=== PATIENT | male | born 1965 | race Caucasian/White ===

== ENCOUNTER 2022-04-30 13:04 | Inpatient (IN) | payer OTHER ==
[~2022-04-30] VITALS: Ht 177.8 cm; Wt 57.6 kg
--- NOTE | 2022-04-30 13:13 | NUR ---
BREANNA Spencer FROM [facility] FOR APRIL KERR, PT IS ON HFNR SATTING AT 100%, PT SATTING AT 97% ON ROOM AIR. PT HAS HX OF COPD STATES THAT HE HAS BEEN FEELING SOB FOR A MONTH AND HIS INHALER IS NOT WORKING. WHEEZING HEARD UPON AUSCULTATION. RT AT BEDSIDE, DR JOSEPH AT BEDSIDE. AWAITING MD ORDERS.
--- NOTE | 2022-04-30 13:14 | NUR ---
IV ESTABLISHED L AC 20G. LABS DRAWN AND SENT.
[2022-04-30] MEDS ORDERED: ALBUTEROL FS 2.5 MG/3 ML VIAL.NEB ONE ×2 (13:15→14:15)
--- NOTE | 2022-04-30 13:15 | NUR ---
RT AT BEDSIDE FOR BREATHING TREATMENT.
[2022-04-30] MEDS ORDERED: Magnesium 1GM/D5W 100ML PREMIX 100 ML IV ONE (13:16)
[2022-04-30] MEDS ORDERED: methylPREDNISolone SOD SUCC 125 MG/2ML VIAL ONE (13:16)
--- NOTE | 2022-04-30 13:18 | NUR ---
TECH AT BEDSIDE FOR EKG
--- NOTE | 2022-04-30 13:27 | NUR ---
COVID TEST COLLECTED AND SENT
--- NOTE | 2022-04-30 13:29 | NUR ---
X RAY AT BEDSIDE
[2022-04-30] MEDS ORDERED: ALBUTEROL FS 2.5 MG/3 ML VIAL.NEB CONTNEB ONE ×2 (13:30→15:00)
[2022-04-30] MEDS ORDERED: methylPREDNISolone SOD SUCC 125 MG/2ML VIAL IV ONE (13:30)
[2022-04-30] MEDS ORDERED: Magnesium 1GM/D5W 100ML PREMIX 200 ML IV ONE (13:30)
[2022-04-30 13:33] LABS: BASOPHILS # (AUTO) 0.1 K/uL (0.0-0.2); BASOPHILS % (AUTO) 1.4 % (0.0-2.0); EOSINOPHILS % (AUTO) 7.1 % (0.0-6.0); HEMATOCRIT 40 % (39-51); HEMOGLOBIN 13.5 g/dL (13.5-17.5); LYMPHOCYTES # (AUTO) 0.9 K/uL (0.8-4.8); LYMPHOCYTES % (AUTO) 14.7 % (20.0-44.0); MEAN CORPUSCULAR HGB CONC 34 g/dl (31.0-36.0); MEAN CORPUSCULAR VOLUME 91 fL (80-96); MONOCYTES # (AUTO) 0.7 K/uL (0.1-1.30); MONOCYTES % (AUTO) 10.9 % (2.0-12.0); NEUTROPHILS % (AUTO) 65.9 % (43.0-81.0); PLATELET COUNT (AUTO) 317 K/uL (150-450); RED BLOOD CELL COUNT(AUTO) 4.39 MIL/uL (4.5-6.0)
[2022-04-30 13:39] LABS: CALCIUM, SERUM 9.2 mg/dL (8.5-10.1); CREATININE 0.6 mg/dL (0.6-1.3); POTASSIUM 4.6 mmol/L (3.5-5.1)
[2022-04-30 13:45] LABS: ALBUMIN 3.4 g/dL (3.4-5.0); BILIRUBIN,DIRECT 0.1 mg/dL (0.0-0.2); BILIRUBIN,TOTAL 0.5 mg/dL (0.2-1.0); TOTAL PROTEIN, SERUM 7.8 g/dL (6.4-8.2)
[2022-04-30] MEDS ORDERED: ALBU8.5H8 IH (14:05)
[2022-04-30] MEDS ORDERED: MEGE40TA5 PO (14:05)
[2022-04-30] MEDS ORDERED: HYDR-4303 PO (14:05)
[2022-04-30] MEDS ORDERED: MAG30ORA PO (14:05)
[2022-04-30] MEDS ORDERED: ACET-868 PO (14:05)
[2022-04-30] MEDS ORDERED: HYDR-3980 PO (14:05)
[2022-04-30] MEDS ORDERED: TIOT18CA3 IH (14:05)
[2022-04-30] MEDS ORDERED: AMOX-430 PO (14:05)
[2022-04-30] MEDS ORDERED: IPRATROPIUM NEB FS 0.5 MG/2.5 ML AMPUL.NEB ONE (14:15)
--- NOTE | 2022-04-30 14:15 | NUR ---
PT INSISTING ON IV LINE TO BE REMOVED, STATING "IT HURTS, REMOVE IT". EXPLAINED TO PT IMPORTANCE OF PERIPHERAL IV LINE BUT STILL WANTED IT TO BE REMOVED. IV LINE REMOVED, NO BLEEDING NOTED.
[2022-04-30] MEDS ORDERED: IPRATROPIUM NEB FS 0.5 MG/2.5 ML AMPUL.NEB NEB ONE (15:00)
[2022-04-30] MEDS ORDERED: INSULIN REGULAR, HUMAN 100 UNIT/ML 10 ML VIAL IV ONE (15:30)
[2022-04-30] MEDS ORDERED: ALBUTEROL FS 2.5 MG/3 ML VIAL.NEB NEB ONE ×2 (15:30→16:00)
--- NOTE | 2022-04-30 15:31 | NUR ---
RT GIVIN 10 MG ALB 1ST HOUR CONTINOUS PER MD 10MG ALB 1MG ATRO 2ND HR PER MD EMAR MEDICATION ERROR
--- NOTE | 2022-04-30 20:32 | NUR ---
RECEIVED PT IN ER ROOM 6. PT IS ALERT, RR EVEN AND NON LABORED ON SIMPLE MASK @5L [id number] PT IS NONCOMPLIANT, DOES NOT WANT TO HAVE BP CUFF ON ARM AND IS REFUSING IV INSERTION. EXPLAINED BENEFITS VS RISKS. PT CONTINUES TO REFUSE. MD MADE AWARE
--- NOTE | 2022-04-30 21:58 | NUR ---
report given to katarina
--- NOTE | 2022-04-30 21:59 | NUR ---
PATIENT TRANSFERRED TO [facility]
--- NOTE | 2022-04-30 22:20 | NUR ---
MS INSTALLATION AND REPAIR TECHNICIAN NOTE RECEIVED REPORT FROM ER NURSE LOYDA. PT IS BEING ADMITTED IN ROOM 309-2 FOR COPD EXACERBATION, AND RESPIRATORY DISTRESS. PT IS A/O X 3-4, ABLE TO MAKE NEEDS KNOWN. PT IS ORIENTED TO ROOM. NO C/O PAIN, OR DISCOMFORT AT THIS TIME. PT IS REFUSING BREATHING TREATMENT, AND HE IS REFUSING SKIN ASSESSMENT. IV ACCESS TO LEFT AC 20G, PATENT, AND INTACT. SAFETY MEASURES IN PLACE: CALL LIGHT WITHIN REACH, BED LOCKED, IN LOW POSITION, SR UP X2. WILL CONTINUE TO MONITOR PT.
[2022-04-30] MEDS: ALBUTEROL FS 2.5 MG/0.5 ML VIAL.NEB NEB SCH (23:00)
[2022-04-30] MEDS ORDERED: ONDANSETRON HCL/PF 4 MG/2 ML VIAL IVP PRN (23:00)
[2022-04-30] MEDS: IPRATROPIUM NEB FS 0.5 MG/2.5 ML AMPUL.NEB NEB SCH (23:00)
[2022-04-30] MEDS ORDERED: Z GUARD REMEDY 4 OZ OINT TP PRN (23:00)
[2022-04-30] MEDS ORDERED: ACETAMINOPHEN 325 MG TABLET PO PRN (23:00)
--- NOTE | 2022-04-30 23:24 | NUR ---
RT Pt refused tx and refused Spo2 check, RN informed. No SOB or respiratory distress noted at this time.
[2022-05-01] MEDS: methylPREDNISolone SOD SUCC 40 MG/ML VIAL IV SCH ×4 (05:00→21:00)
--- NOTE | 2022-05-01 07:02 | NUR ---
MS RN OPENING NOTES RECEIVED PATIENT IN BED AWAKE, ABLE TO MAKE NEEDS KNOWN. ON 2L VIA NC, NO S/S OF RESPIRATORY DISTRESS. PATIENT HAS IV ACCESS LAC #20 SL, INTACT AND PATENT. PATIENT IS CONTINENT USES URINAL. PATIENT IS REFUSING BODY CHECK AT THIS TIME WILL CONTINUE TO ATTEMPT. SAFETY MEASURES IN PLACE: BED LOCKED AND IN LOWEST POSITION, SIDE RAILS UP x2, CALL LIGHT WITHIN REACH, HOB ELEVATED. WILL CONTINUE TO MONITOR.
--- NOTE | 2022-05-01 07:05 | NUR ---
MS RN CLOSING NOTE LEFT PT AWAKE, IN BED. PT IS A/O X 3-4, ABLE TO MAKE NEEDS KNOWN. NO C/O PAIN, OR DISCOMFORT AT THIS TIME. PT IS REFUSING MED, SOLU MEDROL. IMPORTANCE OF RECEIVING MEDICATION IS EXPLAINED TO PT. BUT PT STILL DECLINES. IV ACCESS TO LEFT AC 20G, PATENT, AND INTACT. SAFETY MEASURES IN PLACE: CALL LIGHT WITHIN REACH, BED LOCKED, IN LOW POSITION, SR UP X2. WILL CONTINUE TO MONITOR PT.
--- NOTE | 2022-05-01 07:13 | NUR ---
MS RN NOTE PT ENDORSED TO AM SHIFT NURSE FOR MIHAI.
[2022-05-01] MEDS: IPRATROPIUM NEB FS 0.5 MG/2.5 ML AMPUL.NEB NEB SCH ×4 (07:27→19:30)
[2022-05-01] MEDS: ALBUTEROL FS 2.5 MG/0.5 ML VIAL.NEB NEB SCH ×4 (07:28→19:30)
[2022-05-01] MEDS: PANTOPRAZOLE 40 MG TABLET.DR PO SCH (07:30)
[2022-05-01] MEDS: HYDROCODONE/APAP 10/325MG TABLET PO PRN ×2 (07:57→17:12)
[2022-05-01 08:00] VITALS: BP 106/71
[2022-05-01] MEDS: MEGESTROL ACETATE 40 MG TABLET PO SCH ×2 (09:00→17:00)
--- NOTE | 2022-05-01 09:18 | NUR ---
RN NOTES PATIENT REFUSED MORNING MEDICATION, EXPLAINED MEDICATION, THE RISKS AND THE BENEFITS. STATED THAT HE WANTS PAIN MEDICATION, "STRONG ONES" EXPLAINED THAT PAIN MEDICATION WAS ADMINISTERED ALREADY. WILL CONTINUE TO MONITOR.
[2022-05-01] MEDS ORDERED: IOHEXOL-300 100 ML VIAL IV ONE (15:30)
[2022-05-01 16:00] VITALS: BP 125/79
--- NOTE | 2022-05-01 18:00 | NUR ---
RN NOTES PATIENT REQUESTED PAIN MEDICATION, PAIN MEDICATION ADMINISTERED. WILL CONTINUE TO MONITOR.
--- NOTE | 2022-05-01 18:41 | NUR ---
MS RN CLOSING NOTES PATIENT IN BED AWAKE, ABLE TO MAKE NEEDS KNOWN. STABLE ON 2L VIA NC, NO S/S OF RESPIRATORY DISTRESS. PATIENT HAS IV ACCESS LAC #20 SL, INTACT AND PATENT. PATIENT IS CONTENT USES URINAL. PATIENT IS REFUSING BODY CHECK AT THIS TIME WILL CONTINUE TO ATTEMPT. ALL PRESCRIBED MEDICATION REFUSED, MD AWARE. SAFETY MEASURES MAINTAINED: BED LOCKED AND IN LOWEST POSITION, SIDE RAILS UP x2, CALL LIGHT WITHIN REACH, HOB ELEVATED. WILL ENDORSE TO NEXT SHIFT MIHAI.
--- NOTE | 2022-05-01 20:22 | NUR ---
MS RN OPENING NOTES RECEIVED PATIENT SITTING IN BED WATCHING TV. A/0 X3. ABLE TO MAKE NEEDS KNOWN. STABLE ON 2L VIA NC, NO S/S OF RESPIRATORY DISTRESS. IV ACCESS LAC #20 SL, INTACT AND PATENT. PATIENT IS CONTENT USES URINAL. PATIENT IS REFUSING BODY CHECK AT THIS TIME WILL CONTINUE TO ATTEMPT. ALL PRESCRIBED MEDICATION REFUSED, MD AWARE. SAFETY MEASURES MAINTAINED: BED LOCKED AND IN LOWEST POSITION, SIDE RAILS UP x2, CALL LIGHT WITHIN REACH, HOB ELEVATED. WILL CONTINUE TO MONITOR.
--- NOTE | 2022-05-02 00:23 | NUR ---
PATIENT HAS DIFFICULTY BREATHING AND COUGHING, HOOKED TO VENTURI MASK AT 6LPM. PATEINT AGREED ADMINISTRATION OF BREATHING TREATMENT BY RT MONI. STARTED AND GIVEN SOLU MEDROL IV. TOLERATED PROCEDURE WELL. WILL MONITOR THE PATIENT.
[2022-05-02] MEDS: methylPREDNISolone SOD SUCC 40 MG/ML VIAL IV SCH ×3 (00:32→21:45)
[2022-05-02] MEDS: ALBUTEROL FS 2.5 MG/0.5 ML VIAL.NEB NEB SCH ×5 (06:11→19:30)
[2022-05-02] MEDS: IPRATROPIUM NEB FS 0.5 MG/2.5 ML AMPUL.NEB NEB SCH ×5 (06:11→19:30)
[2022-05-02 07:00] VITALS: BP 140/77
--- NOTE | 2022-05-02 07:29 | NUR ---
MS RN OPENING NOTE RECEIVED PT IN BED ASLEEP, EASILY AROUSED. PT A/O X3, ABLE TO MAKE NEEDS KNOWN. PT WAS ON O2 AT 2L/MIN VIA NASAL CANNULA, TOLERATING WELL. NO SOB NOTED. NOT IN ANY SIGN OF RESPIRATORY DISTRESS. IV ACCESS IN LAC G#20, INTACT AND PATENT. SAFETY MEASURE IN PLACE: BED IN LOWEST AND LOCKED POSITION, BED RAILS UPX2, BED ALARM ON, KEPT HOB ELEVATED AND CALL LIGHT WITHIN REACH. WILL CONTINUE TO MONITOR PT.
[2022-05-02] MEDS: PANTOPRAZOLE 40 MG TABLET.DR PO SCH (07:30)
--- NOTE | 2022-05-02 07:50 | NUR ---
MS RN CLOSING NOTES PATIENT IN BED ASLEEP ABLE TO MAKE NEEDS KNOWN. STABLE ON 2L VIA NC, NO S/S OF RESPIRATORY DISTRESS. PATIENT HAS IV ACCESS LAC #20 SL, INTACT AND PATENT. PATIENT IS CONTENT USES URINAL. SAFETY MEASURES MAINTAINED: BED LOCKED AND IN LOWEST POSITION, SIDE RAILS UP x2, CALL LIGHT WITHIN REACH, HOB ELEVATED. WILL ENDORSE TO NEXT SHIFT MIHAI.
--- NOTE | 2022-05-02 08:03 | NUR ---
RN NOTE PT REFUSED THE PROTONIX MEDICATION SCHEDULED AT 0730. EXPLAINED RISK AND BENEFITS X3, STILL REFUSED.
[2022-05-02] MEDS: MEGESTROL ACETATE 40 MG TABLET PO SCH ×2 (09:00→16:58)
--- NOTE | 2022-05-02 09:00 | NUR ---
RN NOTE PT REFUSED THE MEGACE MEDICATION SCHEDULED AT 0900. EXPLAINED RISK AND BENEFITS X3, STILL REFUSED.
[2022-05-02] MEDS: HYDROCODONE/APAP 10/325MG TABLET PO PRN ×2 (11:19→16:55)
--- NOTE | 2022-05-02 11:20 | NUR ---
RN NOTE PT C/O GENERALIZED BODY PAIN, WITH PAIN SCALE LEVEL OF 9/10 AND REQUESTED FOR PAIN MEDICATION. NORCO 10/325 2 TABS ADMINISTERED ORDERED PRN Q4HRS FOR SEVERE PAIN. WILL MONITOR AND REASSESS PT.
[2022-05-02 12:00] VITALS: BP 147/83
[2022-05-02] MEDS: ENSURE ENLIVE 237 ML LIQUID (VANILLA) PO SCH ×2 (13:47→16:58)
--- NOTE | 2022-05-02 16:59 | NUR ---
RN NOTE PT C/O GENERALIZED BODY PAIN, WITH PAIN SCALE LEVEL OF 9/10 AND REQUESTED FOR PAIN MEDICATION. NORCO 10/325 2 TABS ADMINISTERED ORDERED PRN Q4HRS FOR SEVERE PAIN. WILL MONITOR AND REASSESS PT. PT ALSO REFUSED THE MEGACE MEDICATION SCHEDULED AT 1700. EXPLAINED RISK AND BENEFITS X3, STILL REFUSED.
--- NOTE | 2022-05-02 18:51 | NUR ---
MS RN CLOSING NOTE PT IN AWAKE AND RESTING IN BED. PT A/O X3, ABLE TO MAKE NEEDS KNOWN. PT WAS ON O2 AT 2L/MIN VIA NASAL CANNULA, TOLERATING WELL. NO SOB NOTED. NOT IN ANY SIGN OF RESPIRATORY DISTRESS. IV ACCESS IN LAC G#20, INTACT AND PATENT. ALL NEEDS ATTENDED. KEPT CLEAN AND COMFORTABLE. SAFETY MEASURE IN PLACE: BED IN LOWEST AND LOCKED POSITION, BED RAILS UPX2, BED ALARM ON, KEPT HOB ELEVATED AND CALL LIGHT WITHIN REACH. WILL ENDORSE TO TRIMMER MEAT NURSE FOR MIHAI.
--- NOTE | 2022-05-02 19:40 | NUR ---
MS RN OPENING NOTE RECEIVED PATIENT IN BED; AWAKE; ALERT AND ORIENTED X 3. ON O2 INHALATION @ 2 LPM VIA NASAL CANNULA; TOLERATING WELL. BREATHING EVEN AND NONLABORED. NOT IN ANY FORM OF RESPIRATORY DISTRESS. DENIES ANY PAIN OR DISCOMFORT AT THIS TIME. WITH IV ACCESS ON LEFT ANTECUBITAL 20G: INTACT, PATENT AND SALINE LOCKED. ABLE TO MAKE NEEDS KNOWN. SAFETY PRECAUTIONS IMPLEMENTED: HEAD OF BED ELEVATED, CALL LIGHT AND TABLE WITHIN REACH, SIDE RAILS UP X 2, BED IN LOWEST LOCKED POSITION. WILL CONTINUE PLAN OF CARE.
[2022-05-02 20:00] VITALS: BP 112/69
[2022-05-03] MEDS: methylPREDNISolone SOD SUCC 40 MG/ML VIAL IV SCH ×3 (05:00→21:00)
--- NOTE | 2022-05-03 05:12 | NUR ---
RN NOTE ATTEMPTED TO GIVE METHYPREDNISOLONE SODIUM SUCCINATE 40 MG IV. HELD PER PATIENT'S REQUEST. EXPLAINED RISK AND BENEFITS OF TAKING AND NOT TAKING THE MED X 3; PATIENT STILL REFUSED.
--- NOTE | 2022-05-03 06:55 | NUR ---
MS RN CLOSING NOTE PATIENT IN BED; AWAKE; A/O X 3. ON O2 INHALATION @ 2 LPM VIA NASAL CANNULA; TOLERATING WELL. BREATHING EVEN AND NONLABORED. NOT IN ANY FORM OF RESPIRATORY DISTRESS. DENIES ANY PAIN OR DISCOMFORT AT THIS TIME. WITH IV ACCESS ON LEFT ANTECUBITAL 20G: INTACT, PATENT AND SALINE LOCKED. ALL NEEDS ATTENDED. SAFETY PRECAUTIONS MAINTAINED: HEAD OF BED ELEVATED, CALL LIGHT AND TABLE WITHIN REACH, SIDE RAILS UP X 2, BED IN LOWEST LOCKED POSITION. ENDORSED TO IRAJ WALLACE FOR MIHAI.
[2022-05-03 07:00] VITALS: BP 143/90
[2022-05-03] MEDS: PANTOPRAZOLE 40 MG TABLET.DR PO SCH (07:30)
[2022-05-03] MEDS: ENSURE ENLIVE 237 ML LIQUID (VANILLA) PO SCH ×3 (07:58→17:18)
--- NOTE | 2022-05-03 07:59 | NUR ---
RN NOTE PT REFUSED THE PROTONIX MEDICATION SCHEDULED AT 0730. EXPLAINED RISK AND BENEFITS X3, STILL REFUSED.
[2022-05-03] MEDS: IPRATROPIUM NEB FS 0.5 MG/2.5 ML AMPUL.NEB NEB SCH ×4 (08:53→19:30)
[2022-05-03] MEDS: ALBUTEROL FS 2.5 MG/0.5 ML VIAL.NEB NEB SCH ×4 (08:53→19:30)
[2022-05-03] MEDS: MEGESTROL ACETATE 40 MG TABLET PO SCH ×2 (09:00→17:00)
--- NOTE | 2022-05-03 09:26 | NUR ---
RN NOTE PT REFUSED THE MEGACE MEDICATION SCHEDULED AT 0900. EXPLAINED RISK AND BENEFITS X3, STILL REFUSED. PER RT, PT ALSO REFUSED HIS BREATHING TREATMENT, EXPLAINED RISK AND BENEFITS, STILL REFUSED. PT STATED, "THAT BREATHING TREATMENT DOESN'T WORK".
[2022-05-03 16:00] VITALS: BP 117/71
--- NOTE | 2022-05-03 17:20 | NUR ---
RN NOTE PT REFUSED THE MEGACE MEDICATION SCHEDULED AT 1700. EXPLAINED RISK AND BENEFITS X3, STILL REFUSED.
--- NOTE | 2022-05-03 18:44 | NUR ---
MS RN CLOSING NOTE PT IN AWAKE AND RESTING IN BED. PT A/O X3, ABLE TO MAKE NEEDS KNOWN. PT WAS ON O2 AT 2L/MIN VIA NASAL CANNULA, TOLERATING WELL. NO SOB NOTED. NOT IN ANY SIGN OF RESPIRATORY DISTRESS. IV ACCESS IN LAC G#20, INTACT AND PATENT. ALL NEEDS ATTENDED. KEPT CLEAN AND COMFORTABLE. SAFETY MEASURE IN PLACE: BED IN LOWEST AND LOCKED POSITION, BED RAILS UPX2, BED ALARM ON, KEPT HOB ELEVATED AND CALL LIGHT WITHIN REACH. WILL ENDORSE TO COMMERCIAL LENDING ASSISTANT NURSE FOR MIHAI.
--- NOTE | 2022-05-03 19:30 | NUR ---
RN OPENING NOTE RECEIVED PATIENT SITTING IN BED, AWAKE, ALERT AND ORIENTED. ABLE TO COMMUNICATE NEEDS WITH THE STAFFS. ON O2 INHALATION AT 2LPM. NOT IN ANY FORM OF ACUTE DISTRESS. WITH IV ACEESS ON Addendum: 05/03/22 at 2157 by YANET KHAN RN LEFT AC 20G SL. SAFETY MEASURES IN PLACE. KEPT BED IN LOCKED AND IN LOW POSITION. SIDE RAILS UP X2. ADVISED TO USE THE CALL LIGHT WHEN IN NEED OF ASSISTANCE.
[2022-05-03 20:00] VITALS: BP_SYST 118; BP_SYST 120; BP_DIAS 82; BP_DIAS 84
--- NOTE | 2022-05-03 20:05 | NUR ---
RT NOTE PT REFUSING TX AT THIS TIME. RN @ BEDSIDE. PT REFUSING AFTER EXPLAINING RISKS AND BENEFITS. SPO2 @ 95%, HR 115, RR 24.
--- NOTE | 2022-05-03 21:06 | NUR ---
RN NOTE PATIENT REFUSED SOLU-MEDROL IV DESPITE EXPLAINING RISK AND CONSEQUENCE OF NOT TAKING THE MEDICATION. PATIET HAS BEEN REPORTED BY PRIOR NURSE THAT HE HAS EPISODES OF REFUSING MEDICATIONS.
[2022-05-04] MEDS: methylPREDNISolone SOD SUCC 40 MG/ML VIAL IV SCH ×3 (05:41→20:34)
--- NOTE | 2022-05-04 06:52 | NUR ---
RN CLOSING NOTE PATIENT IN BED, ON HIGH PRESSLEY POSITION, ASLEEP BUT EASY TO AROUSE AND RESPONSIVE. ABLE TO COMMUNICATE NEEDS WITH THE STAFFS. ON O2 INHALATION AT 2LPM. NOT IN ANY FORM OF ACUTE DISTRESS. WITH IV ACCESS ON LEFT AC 20G SL. MEDICATED ORDERED. ON IV ATB, MONITORED FOR ANY ADVERSE REACTION. SAFETY MEASURES IN PLACE. KEPT BED IN LOCKED AND IN LOW POSITION TO REDUCE INJURY. SIDE RAILS UP X2. CALL LIGHT WITHIN EASY REACH. ALL NURSING NEEDS ATTENDED.
--- NOTE | 2022-05-04 07:30 | NUR ---
MS RN OPENING NOTE RECEIVED PT IN BED ASLEEP, EASILY AROUSED. PT A/O X3, ABLE TO MAKE NEEDS KNOWN. PT WAS ON O2 AT 2L/MIN VIA NASAL CANNULA, TOLERATING WELL. NO SOB NOTED. NOT IN ANY SIGN OF RESPIRATORY DISTRESS. IV ACCESS IN LAC G#20, INTACT AND PATENT. ON NPO. SCHEDULED FOR BIOPSY TODAY. SAFETY MEASURE IN PLACE: BED IN LOWEST AND LOCKED POSITION, BED RAILS UPX2, BED ALARM ON, KEPT HOB ELEVATED AND CALL LIGHT WITHIN REACH. WILL CONTINUE TO MONITOR.
[2022-05-04] MEDS: IPRATROPIUM NEB FS 0.5 MG/2.5 ML AMPUL.NEB NEB SCH ×4 (07:35→19:30)
[2022-05-04] MEDS: ALBUTEROL FS 2.5 MG/0.5 ML VIAL.NEB NEB SCH ×4 (07:35→19:30)
[2022-05-04 08:00] VITALS: BP 122/76
[2022-05-04] MEDS: ENSURE ENLIVE 237 ML LIQUID (VANILLA) PO SCH ×3 (08:00→17:00)
[2022-05-04] MEDS: PANTOPRAZOLE 40 MG TABLET.DR PO SCH (08:22)
[2022-05-04] MEDS: MEGESTROL ACETATE 40 MG TABLET PO SCH ×2 (08:22→17:59)
[2022-05-04] MEDS: HYDROCODONE/APAP 10/325MG TABLET PO PRN (18:00)
--- NOTE | 2022-05-04 19:30 | NUR ---
MS RN OPENING NOTE PATIENT SITTING IN BED, ALERT AND ORIENTED X3. ABLE TO MAKE NEED KNOWN. AFEBRILE AND NOT IN ANY FORM OF ACUTE DISTRESS. ON O2 INHALATION AT 3LPM. WITH IV ACCESS ON LEFT AC 20G SL. SAFETY MEASURES IN PLACE. KEPT BED IN LOCKED AND IN LOW POSITION TO REDUCE INJURY. SIDE RAILS UP X2. ADVISED TO USE THE CALL LIGHT WHEN IN NEED OF ASSISTANCE.
--- NOTE | 2022-05-04 19:55 | NUR ---
MS RN CLOSING NOTE PT IN BED ASLEEP, EASILY AROUSED. PT A/O X3, ABLE TO MAKE NEEDS KNOWN. PT WAS ON O2 AT 3L/MIN VIA NASAL CANNULA, TOLERATING WELL. NO SOB NOTED. NOT IN ANY SIGN OF RESPIRATORY DISTRESS. IV ACCESS IN LAC G#20, INTACT AND PATENT. RESUME DIET.CT BIOPSY REFUSED, EXPLAINED TO PATIENT RISK OF NOT HAVING THE PROCEDURE. STILL, PATIENT REFUSED. LABS WERE REFUSED ALSO. NOTIFIED DR. CHAVEZ AND DR. ARITA. SAFETY MEASURE IN PLACE: BED IN LOWEST AND LOCKED POSITION, BED RAILS UPX2, BED ALARM ON, KEPT HOB ELEVATED AND CALL LIGHT WITHIN REACH. ENDORSED TO INCOMING STAFF
--- NOTE | 2022-05-04 20:34 | NUR ---
MS RN NOTE PATIENT REFUSED TO HAVE SOLU-MEDROL ORDERED DESPITE EXPLAINING RISK AND CONSEQUENCES OF NOT TAKING IT. PATIENT HAS EPISODES OF REFUSING MEDICATIONS AND TREATMENT AND MD IS AWARE ABOUT IT.
--- NOTE | 2022-05-05 00:03 | NUR ---
RN NOTE RECEIVED AND ORDER FROM HOSPITALIST TO DO COVID ANTIGEN TEST SINCE PATIENT HAS POTENTIAL EXPOSURE TO COVID (+) PATIENT. ORDER NOTED AND CARRIED OUT AND SEND SAMPLE TO LAB. AWAITING FOR RESULT.
[2022-05-05] MEDS: methylPREDNISolone SOD SUCC 40 MG/ML VIAL IV SCH ×3 (04:34→21:00)
--- NOTE | 2022-05-05 06:51 | NUR ---
MS RN CLOSING NOTE PATIENT SITTING IN BED, AWAKE, ALERT AND ORIENTED X3. ABLE TO COMMUNICATE NEEDS WITH THE STAFFS. AFEBRILE AND NOT IN ANY FORM OF ACUTE DISTRESS. ON O2 INHALATION AT 3LPM. WITH IV ACCESS ON LEFT AC 20G SL. MEDICATED ORDERED. SAFETY MEASURES IN PLACE. KEPT BED IN LOCKED AND IN LOW POSITION TO REDUCE INJURY. SIDE RAILS UP X2. ADVISED TO USE THE CALL LIGHT WHEN IN NEED OF ASSISTANCE. CONSTANT VISUAL CHECK DONE TO ENSURE SAFETY. ALL NURSING NEEDS ATTENDED.
[2022-05-05] MEDS: ALBUTEROL FS 2.5 MG/0.5 ML VIAL.NEB NEB SCH ×4 (07:18→19:30)
[2022-05-05] MEDS: IPRATROPIUM NEB FS 0.5 MG/2.5 ML AMPUL.NEB NEB SCH ×4 (07:18→19:30)
--- NOTE | 2022-05-05 07:21 | NUR ---
RT NOTE MED ALBUTEROL 2.5 MG/0.5 ML NOT GIVEN . PATIENT REFUSED BREATHING TREATMENT.
--- NOTE | 2022-05-05 07:30 | NUR ---
MS IRAJ CLOSING NOTE PATIENT SITTING IN BED, AWAKE, ALERT AND ORIENTED X3. ABLE TO COMMUNICATE NEEDS WITH THE STAFFS. AFEBRILE AND NOT IN ANY FORM OF ACUTE DISTRESS. ON O2 INHALATION AT 3LPM. WITH IV ACCESS ON LEFT AC 20G SL. . SAFETY MEASURES IN PLACE. KEPT BED IN LOCKED AND IN LOW POSITION TO REDUCE INJURY. SIDE RAILS UP X2. ADVISED TO USE THE CALL LIGHT WHEN IN NEED OF ASSISTANCE. CONSTANT VISUAL CHECK DONE TO ENSURE SAFETY. WILL MONITOR Addendum: 05/05/22 at 1036 by NADJA MORALES RN RN OPENING NOTE
[2022-05-05] MEDS: MEGESTROL ACETATE 40 MG TABLET PO SCH ×2 (08:28→17:00)
[2022-05-05] MEDS: PANTOPRAZOLE 40 MG TABLET.DR PO SCH (08:28)
[2022-05-05] MEDS: ENSURE ENLIVE 237 ML LIQUID (VANILLA) PO SCH ×3 (08:46→17:29)
[2022-05-05 16:00] VITALS: BP 100/80
--- NOTE | 2022-05-05 18:55 | NUR ---
MS RN CLOSING NOTE PATIENT SITTING IN BED, AWAKE, ALERT AND ORIENTED X3. ABLE TO COMMUNICATE NEEDS WITH THE STAFFS. AFEBRILE AND NOT IN ANY FORM OF ACUTE DISTRESS. ON O2 INHALATION AT 3LPM. WITH IV ACCESS ON LEFT AC 20G SL. REFUSED SOME OF HIS MEDS. SAFETY MEASURES IN PLACE. KEPT BED IN LOCKED AND IN LOW POSITION TO REDUCE INJURY. SIDE RAILS UP X2. ADVISED TO USE THE CALL LIGHT WHEN IN NEED OF ASSISTANCE. CONSTANT VISUAL CHECK DONE TO ENSURE SAFETY. ALL NURSING NEEDS ATTENDED. ENDORSED TO INCOMING STAFF.
--- NOTE | 2022-05-05 19:29 | NUR ---
RN OPENING NOTE PATIENT AWAKE IN BED; NON-COMPLIANT. A/OX3. NO S/S OF DISTRESS, BREATHING WITHOUT DIFFICULTY ON 3L NC. LAC #20 SL INTACT AND PATENT. SAFETY MEASURES IN PLACE: BED LOCKED AND AT LOWEST POSITION, RAILS UP X2, CALL GOMEZ WITHIN REACH. WILL CONTINUE TO MONITOR PATIENT.
[2022-05-06] MEDS: methylPREDNISolone SOD SUCC 40 MG/ML VIAL IV SCH ×4 (05:00→21:00)
--- NOTE | 2022-05-06 06:32 | NUR ---
RN CLOSING NOTE PATIENT AWAKE IN BED. A/OX2. NO S/S OF DISTRESS, BREATHING WITHOUT DIFFICULTY ON 3L NC. LAC #20 SL INTACT AND PATENT. SAFETY MEASURES IN PLACE: BED LOCKED AND AT LOWEST POSITION, RAILS UP X2, CALL GOMEZ WITHIN REACH. WILL ENDORSE TO NEXT SHIFT FOR MIHAI.
[2022-05-06] MEDS: PANTOPRAZOLE 40 MG TABLET.DR PO SCH ×2 (07:30→07:59)
[2022-05-06] MEDS: IPRATROPIUM NEB FS 0.5 MG/2.5 ML AMPUL.NEB NEB SCH ×5 (07:33→19:30)
[2022-05-06] MEDS: ALBUTEROL FS 2.5 MG/0.5 ML VIAL.NEB NEB SCH ×5 (07:33→19:30)
--- NOTE | 2022-05-06 07:35 | NUR ---
MS RN OPENING NOTE PATIENT AWAKE IN BED; EYES CLOSED, RESPONDS TO QUESTIONS BY YES AND NO ONLY, NON-COMPLIANT. A/OX3. NO S/S OF DISTRESS NOTED, BREATHING WITHOUT DIFFICULTY ON 3L NC. LAC G#20 SL IV ACCESS, NO INFILTRATION NOTED, REFUSED TO CHECK FOR PATENCY. SAFETY MEASURES IN PLACE: BED LOCKED AND AT LOWEST POSITION, RAILS UP X2, CALL GOMEZ WITHIN REACH. WILL CONTINUE TO MONITOR PATIENT.
[2022-05-06] MEDS: ENSURE ENLIVE 237 ML LIQUID (VANILLA) PO SCH ×3 (08:00→16:33)
[2022-05-06] MEDS: MEGESTROL ACETATE 40 MG TABLET PO SCH ×2 (08:08→16:32)
--- NOTE | 2022-05-06 11:30 | NUR ---
RN NOTES PATIENT REFUSED CT OF THE ABDOMEN AND PELVIS.
[2022-05-06 15:43] VITALS: BP 88/54
--- NOTE | 2022-05-06 15:45 | NUR ---
RN NOTES PATIENT HAS BEEN REFUSING BREATHING TREATMENTS, COMPLAINING OF HAVING TROUBLE BREATHING, ON 2LPM VIA NC. CONVINCED PATIENT TO GET BREATHING TREATMENT, CALLED RT TO INFORM THAT PATIENT AGREED BUT WHEN RT WAS IN THE ROOM, HE REFUSED AGAIN.
[2022-05-06] MEDS: BENZTROPINE MESYLATE (1 MG) 1 MG TABLET PO SCH (16:33)
[2022-05-06] MEDS: HALOPERIDOL 5 MG TABLET PO SCH (16:33)
--- NOTE | 2022-05-06 16:41 | NUR ---
RN NOTES DR HERNANDEZ DID A CONSULT AND MENTIONED THAT THE PATIENT AGREED TO DO BIOPSY BUT WHEN I ASKED THE PATIENT HE MENTIONED HE WONT SIGN IT.
--- NOTE | 2022-05-06 18:58 | NUR ---
MS RN CLOSING NOTE PATIENT AWAKE IN BED, WITH HEAD OF BED ELEVATED, AOX3, A/OX3. NO S/S OF DISTRESS NOTED, BREATHING WITHOUT DIFFICULTY ON 20L NC SATURATING AT 95%. WITH LAC G#20 SL IV ACCESS, NO INFILTRATION NOTED, PATENT, FLUSHING WELL. PATIENT REFUSED ALL LABS AND BREATHING TREATMENTS DESPITE ENCOURAGEMENT. ALL NEEDS MET. SAFETY MEASURES IN PLACE: BED LOCKED AND AT LOWEST POSITION, RAILS UP X2, CALL GOMEZ WITHIN REACH. WILL ENDORSE TO SUPERVISOR MOLD YARD NURSE.
--- NOTE | 2022-05-06 19:30 | NUR ---
MS RN OPENING NOTE RECEIVED PT AWAKE IN BED. A/O X3 AND ABLE TO MAKE NEEDS KNOWN. PT ON O2 @ 2LPM VIA NC, SATURATING 95%. NOTED WITH SOB, OFFERED TO CALL RT, BUT PT REFUSED. PT REFUSING CARE AND EDUCATION AT THIS TIME. IV ACCESS LAC 20G, INTACT AND PATENT. SAFETY PRECAUTIONS IN PLACE. BED IN LOWEST LOCKED POSITION, HOB ELEVATED, SIDE RAILS UP X2, AND CALL LIGHT AND TABLE WITHIN REACH. ALL NEEDS MET AT THIS TIME.
[2022-05-06 20:00] VITALS: BP 143/78
--- NOTE | 2022-05-06 21:14 | NUR ---
RN NOTE PT STATED HE WOULD TAKE SOLU MEDROL. LORAINE UP MEDICATION AND PT THEN REFUSED. TRIED TO EDUCATE THE PT BUT HE PUT HIS BLANKET OVER HIS HEAD AND KEPT REPEATING "NO. TOMORROW." WASTED MEDICATION IN PHARMACEUTICAL WASTE.
--- NOTE | 2022-05-07 01:22 | NUR ---
RN NOTE PT IS REFUSING CT NEEDLE BIOPSY AND CT ABDOMEN PELVIS AT THIS TIME. PT STATED "I WONT DO IT" WHEN ASKED IF HE WOULD CONSENT FOR THE PROCEDURES TOMORROW. ATTEMPTED TO EDUCATE PT ON IMPORTANCE OF THESE PROCEDURES, STILL REFUSED. CHARGE NURSE BAKARI PLATA.
[2022-05-07] MEDS: methylPREDNISolone SOD SUCC 40 MG/ML VIAL IV SCH ×3 (05:00→20:21)
--- NOTE | 2022-05-07 06:34 | NUR ---
MS RN CLOSING NOTE PT AWAKE IN BED. A/O X 2-3 AND ABLE TO MAKE NEEDS KNOWN. PT ON O2 @ 2LPM VIA NC, SATURATING ABOVE 94% DURING ENTIRE SHIFT. NO SOB OR S/S OF RESPIRATORY DISTRESS AT THIS TIME. PT HAD 2 EPISODES OF SOB THIS SHIFT BUT REFUSED ALL CARE. IV ACCESS LAC 20G, INTACT AND PATENT. PT REFUSED SKIN ASSESSMENT, MEDICATIONS, BREATHING TREATMENTS, EDUCATION, AND PROCEDURE CONSENTS THIS SHIFT. SAFETY PRECAUTIONS IN PLACE AT ALL TIMES. BED IN LOWEST LOCKED POSITION, HOB ELEVATED, SIDE RAILS UP X2, AND CALL LIGHT AND TABLE WITHIN REACH. ALL NEEDS MET AT THIS TIME AND WILL ENDORSE TO ONCOMING NURSE FOR MIHAI.
[2022-05-07 07:00] VITALS: BP 54/23
[2022-05-07] MEDS: ALBUTEROL FS 2.5 MG/0.5 ML VIAL.NEB NEB SCH ×5 (07:28→19:30)
[2022-05-07] MEDS: IPRATROPIUM NEB FS 0.5 MG/2.5 ML AMPUL.NEB NEB SCH ×5 (07:28→19:30)
[2022-05-07] MEDS: PANTOPRAZOLE 40 MG TABLET.DR PO SCH (07:30)
--- NOTE | 2022-05-07 07:40 | NUR ---
MS RN OPENING NOTE RECEIVED PT AWAKE IN BED,WITH HEAD OF BED ELEVATED. A/O X3 AND ABLE TO MAKE NEEDS KNOWN. PT ON O2 @ 2LPM VIA NC, SATURATING 95%. NOTED WITH SOB, EDUCATED PATIENT ON MEDICATION AND TREATMENT COMPLIANCE, PATIENT VERBALIZED HE WILL COOPERATE. IV ACCESS LAC 20G, INTACT AND PATENT. SAFETY PRECAUTIONS IN PLACE. BED IN LOWEST LOCKED POSITION, HOB ELEVATED, SIDE RAILS UP X2, AND CALL LIGHT AND TRAY TABLE WITHIN REACH. WILL CONTINUE TO MONITOR DURING MY SHIFT..
[2022-05-07 08:00] VITALS: BP 151/97
[2022-05-07] MEDS: ENSURE ENLIVE 237 ML LIQUID (VANILLA) PO SCH ×3 (08:39→16:39)
[2022-05-07] MEDS: MEGESTROL ACETATE 40 MG TABLET PO SCH ×3 (08:40→16:36)
[2022-05-07] MEDS: BENZTROPINE MESYLATE (1 MG) 1 MG TABLET PO SCH ×3 (08:40→16:34)
[2022-05-07] MEDS: HALOPERIDOL 5 MG TABLET PO SCH ×3 (08:40→16:35)
--- NOTE | 2022-05-07 08:56 | NUR ---
RN NOTES PATIENT INITIALLY REFUSED THE MORNING MEDICATIONS BUT AGREED TO TAKE IT WHEN I CAME BACK. RETURNED MEDS AND PULLED THEM OUT AGAIN.
[2022-05-07 11:17] LABS: CALCIUM, SERUM 8.4 mg/dL (8.5-10.1); CREATININE 0.8 mg/dL (0.6-1.3); POTASSIUM 4.1 mmol/L (3.5-5.1)
[2022-05-07 11:27] LABS: BASOPHILS % (AUTO) 0.3 % (0.0-2.0); EOSINOPHILS % (AUTO) 0.7 % (0.0-6.0); HEMATOCRIT 37 % (39-51); HEMOGLOBIN 12.7 g/dL (13.5-17.5); LYMPHOCYTES # (AUTO) 0.6 K/uL (0.8-4.8); LYMPHOCYTES % (AUTO) 8.4 % (20.0-44.0); MEAN CORPUSCULAR HGB CONC 34 g/dl (31.0-36.0); MEAN CORPUSCULAR VOLUME 91 fL (80-96); MONOCYTES # (AUTO) 0.8 K/uL (0.1-1.30); MONOCYTES % (AUTO) 11.8 % (2.0-12.0); NEUTROPHILS # (AUTO) 5.3 K/uL (1.8-8.9); NEUTROPHILS % (AUTO) 78.8 % (43.0-81.0); PLATELET COUNT (AUTO) 306 K/uL (150-450); RED BLOOD CELL COUNT(AUTO) 4.11 MIL/uL (4.5-6.0); WHITE BLOOD COUNT (AUTO) 6.7 K/uL (4.3-11.0)
[2022-05-07 16:00] VITALS: BP_SYST 130; BP_SYST 140; BP_DIAS 72; BP_DIAS 84
[2022-05-07] MEDS ORDERED: BENZONATATE 100 MG CAPSULE PO PRN (16:30)
[2022-05-07] MEDS ORDERED: MORPHINE SULFATE INJ 2 MG/ML DISP.SYRIN IM PRN (16:30)
--- NOTE | 2022-05-07 16:35 | NUR ---
dr. Grider contacted regarding increase cough and congestion. New orders received and will administer per instruction.
[2022-05-07] MEDS: BENZONATATE 100 MG CAPSULE PO SCH ×2 (16:38→17:02)
--- NOTE | 2022-05-07 18:36 | NUR ---
cough improved, seen by psych, resting in bed.
--- NOTE | 2022-05-07 18:45 | NUR ---
MS RN CLOSING NOTE PT AWAKE IN BED,WITH HEAD OF BED ELEVATED. A/O X3 AND ABLE TO MAKE NEEDS KNOWN. PT STILL ON O2 @ 2LPM VIA NC, SATURATING 95%. NOTED WITH SOB WITH COUGHING HAS STOPPED. PATIENT ACCEPTED 2 BREATHING TREATMENTS DURING MY SHIFT. PATIENT IS SHOWING MORE COOPERATIVE BEHAVIOR, JUST NEEDS ENCOURAGEMENT AND SUPPORT. IV ACCESS LAC 20G, INTACT AND PATENT. SAFETY PRECAUTIONS IN PLACE. BED IN LOWEST LOCKED POSITION, HOB ELEVATED, SIDE RAILS UP X2, AND CALL LIGHT AND TRAY TABLE WITHIN REACH. ALL NEEDS MET, ALL DUE MEDS GIVEN. WILL ENDORSE TO HAT BRIM CURLER NURSE.
--- NOTE | 2022-05-07 19:43 | NUR ---
MS GALO OPENING NOTES RECEIVED PATIENT IN BED AWAKE. A/O X4 ABLE TO MAKE NEEDS KNOWN. ON RA, TOLERATED WELL. NO S/S OF SOB OR DISTRESS. IV ACCESS IS AT LEFT AC #20G, PATENT AND INTACT, RUNNING NS @ 75 ML/HR. SAFETY PRECAUTIONS IN PLACE: BED IN LOW AND LOCKED POSITION; SIDE RAILS UP X2; CALL LIGHT AND TRAY TABLE WITHIN REACH. WILL MONITOR DURING MY SHIFT. Addendum: 05/07/22 at 1945 by ANTHONY HOOD RN IV ACCESS AT LEFT AC #20, PATENT AND INTACT, SALINE LOCK, FLUSHING WELL.
[2022-05-07 20:00] VITALS: BP 138/87
--- NOTE | 2022-05-07 20:20 | NUR ---
RN NOTES PATIENT REFUSED SOLU-MEDROL IV INJECTION. EXPLAINED BENEFITS AND RISK OF NOT TAKING MEDS X2. STILL REFUSED. MED RETURNED BACK TO [facility].
--- NOTE | 2022-05-07 22:28 | NUR ---
IRAJ NOTES PATIENT IS COMPLAINING OF GENERALIZED PAIN. RATED PAIN 10/10. REFUSED TO BE GIVEN MORPHINE 1MG IV. WILL RETURN MED BACK TO [facility]. Addendum: 05/07/22 at 2234 by ANTHONY HOOD RN RETURNED MED WITNESS BY IRAJ BUSCH
--- NOTE | 2022-05-08 00:21 | NUR ---
RN NOTES REINFORCED NEED FOR BIOPSY. PATIENT REFUSED TO SIGN CONSENT.
--- NOTE | 2022-05-08 01:56 | NUR ---
PATIENT IS COUGHING (NON-PRODUCTIVE COUGH). INSTRUCTED DEEP BREATHING EXERCISE AND PLACED IN FOWLERS POSITION. EMPHASIZED THE NEED FOR BREATHING THERAPY (NEBULIZATION) AND MEDICATION BUT REFUSED. WILL CONTINUE TO MONITOR.
--- NOTE | 2022-05-08 02:23 | NUR ---
PATIENT IS COMPLAINING OF DIFFICULTY BREATHING. REQUESTED RT FOR NEBULIZATION. TOLERATED PROCEDURE WELL. PREPARED SOLU-MEDROL INJECTION BUT REFUSED. WILL DISCARD MED. Addendum: 05/08/22 at 0231 by ANTHONY HOOD RN WASTED MED WITNESSED BY IRAJ WARNER
[2022-05-08] MEDS: ALBUTEROL FS 2.5 MG/0.5 ML VIAL.NEB NEB SCH ×8 (04:01→20:32)
[2022-05-08] MEDS: IPRATROPIUM NEB FS 0.5 MG/2.5 ML AMPUL.NEB NEB SCH ×8 (04:01→20:32)
--- NOTE | 2022-05-08 04:49 | NUR ---
RN NOTES PATIENT STILL COUGHING AND COMPLAIN OF DIFFICULTY BREATHING, KNOWN HX OF COPD; 02 SAT 94%, BREATHING 2LPM OF 02 VIA NASAL CANNULA. REFUSED MEDS. WILL WAIT FOR RT FOR NEXT DOSE OF BREATHING TREATMENT. EXPLAINED RISK OF REFUSAL X3. VERBALIZED UNDERSTANDING.
[2022-05-08] MEDS: methylPREDNISolone SOD SUCC 40 MG/ML VIAL IV SCH ×3 (05:00→21:00)
[2022-05-08] MEDS: PANTOPRAZOLE 40 MG TABLET.DR PO SCH ×2 (06:35→06:41)
--- NOTE | 2022-05-08 06:42 | NUR ---
RN NOTES PATIENT REFUSED TO TAKE PROTONIX 40MG TAB. EXPLAINED THE BENEFITS OF TAKING MED X3. STILL REFUSED. WILL RETURN MED TO [facility].
--- NOTE | 2022-05-08 07:17 | NUR ---
MS RN CLOSING NOTE PT SLEEPING IN BED IN FOWLERS POSITION. A/O X3 AND ABLE TO MAKE NEEDS KNOWN. PT STILL ON O2 @ 2LPM VIA NC, SATURATING 96%. NOTED WITH SOB WITH COUGHING HAS STOPPED. PATIENT ACCEPTED 1 BREATHING TREATMENT DURING MY SHIFT. IV ACCESS LAC 20G, INTACT AND PATENT. SAFETY PRECAUTIONS IN PLACE. BED IN LOWEST LOCKED POSITION, HOB ELEVATED, SIDE RAILS UP X2, AND CALL LIGHT AND TRAY TABLE WITHIN REACH. ALL NEEDS MET, ALL DUE MEDS GIVEN. WILL ENDORSE TO DAY SHIFT NURSE.
--- NOTE | 2022-05-08 07:30 | NUR ---
MS RN OPENING NOTE RECEIVED PT AWAKE IN BED,WITH HEAD OF BED ELEVATED. A/O X3 AND ABLE TO MAKE NEEDS KNOWN. PT ON O2 @ 2LPM VIA NC, SATURATING 94%. NOTED WITH SOB. IV ACCESS LAC 20G, INTACT AND PATENT.ALL SAFETY PRECAUTIONS IN PLACE. BED IN LOWEST LOCKED POSITION, HOB ELEVATED, SIDE RAILS UP X2, AND CALL LIGHT AND TRAY TABLE WITHIN REACH. WILL CONTINUE TO MONITOR.
[2022-05-08 08:00] VITALS: BP 127/77
[2022-05-08] MEDS: ENSURE ENLIVE 237 ML LIQUID (VANILLA) PO SCH ×3 (08:53→16:02)
[2022-05-08] MEDS: BENZONATATE 100 MG CAPSULE PO SCH ×2 (08:53→16:02)
[2022-05-08] MEDS: BENZTROPINE MESYLATE (1 MG) 1 MG TABLET PO SCH ×2 (08:54→16:02)
[2022-05-08] MEDS: HALOPERIDOL 5 MG TABLET PO SCH ×2 (08:54→16:02)
[2022-05-08] MEDS: MEGESTROL ACETATE 40 MG TABLET PO SCH ×2 (09:00→16:51)
--- NOTE | 2022-05-08 09:59 | NUR ---
RN NOTES PATIENT REFUSED MAGASE FOR 0900 AM. OFFERED AND EXPLAINED THE BENEFIT AND THE USE OF THE MEDICATION, BUT PATIENT STRONGLY REFUSING. RESPECT PATIENT RIGHTS.
--- NOTE | 2022-05-08 11:18 | NUR ---
RN NOTES CHECKED VITAL SIGNS ; TA=207/77, P=113, NO PAIN, O2= 95% VIA NASAL CANNULA AT 2 L/MIN. REMOVED NASAL CANNULA AND CHECKED FOR OXYGENATION. IN 5 MINUTES O2 SAT WAS 89 % RA.
--- NOTE | 2022-05-08 13:08 | NUR ---
RN NOTES PATIENT REFUSED 1200 GLUCERNA AND 1300 SOLUMEDROL. OFFERED AND EXPLAINED THE BENEFITS, STILL REFUSING. RESPECT PATIENT RIGHTS.
[2022-05-08 16:00] VITALS: BP 123/50
[2022-05-08] MEDS: HYDROCODONE/APAP 10/325MG TABLET PO PRN (17:22)
--- NOTE | 2022-05-08 18:56 | NUR ---
MS RN CLOSING NOTE PT AWAKE IN BED,WITH HEAD OF BED ELEVATED. A/O X3 AND ABLE TO MAKE NEEDS KNOWN. PT ON O2 @ 2LPM VIA NC, SATURATING 95%. NO SOB NOTED. IV ACCESS LAC 20G, INTACT AND PATENT. DUE MEDS GIVEN ORDERED. ALL SAFETY PRECAUTIONS IN PLACE. BED IN LOWEST LOCKED POSITION, HOB ELEVATED, SIDE RAILS UP X2, CALL LIGHT AND TABLE WITHIN REACH. NPO SINCE MIDNIGHT FOR CT NEEDLE BIOPSY TOMORROW. ALL NEEDS ATTENDED. WILL ENDORSE FOR [place].
[2022-05-08 20:00] VITALS: BP 124/68
--- NOTE | 2022-05-08 21:00 | NUR ---
RN NOTES PATIENT REFUSED SOLU-MEDROL IV INJ. EXPLAINED BENEFITS OF TAKING MED X3. STILL REFUSED.
--- NOTE | 2022-05-09 00:49 | NUR ---
RN NOTES PATIENT IS COMPLAINING OF PAIN. PREPARED NORCO 2 TABLETS PRN ORDERED. RETURNED BACK TO [facility] WITNESSED BY IRAJ BURRIS.
[2022-05-09] MEDS: methylPREDNISolone SOD SUCC 40 MG/ML VIAL IV SCH ×2 (05:00→12:38)
--- NOTE | 2022-05-09 05:23 | NUR ---
RN NOTES PATIENT IS COMPLAINING OF DIFFICULTY BREATHING, LABORED. 02 SATURATION OF 95% ATTACHED TO O2 2LPM. REQUESTED RT FOR BREATHING TREATMENT. REFUSED SOLU-MEDROL IV. EXPLAINED THE BENEFIT OF THE DRUG X3. STILL REFUSED. WILL CONTINUE TO MONITOR.
--- NOTE | 2022-05-09 05:40 | NUR ---
RN NOTES PATIENT PULLED OUT HIS IV ACCESS. REFUSED TO BE RE-INSERTED. EXPLAINED THE RISK AND BENEFIT X3. STILL REFUSED. WILL CONTINUE TO MONITOR.
[2022-05-09] MEDS: PANTOPRAZOLE 40 MG TABLET.DR PO SCH (06:35)
--- NOTE | 2022-05-09 06:35 | NUR ---
RN NOTES PATIENT REFUSED PROTONIX TAB ORALLY. EXPLAINED BENEFIT OF TAKING THE DRUG X3 . STILL REFUSED.
--- NOTE | 2022-05-09 07:11 | NUR ---
MS RN CLOSING NOTE PT AWAKE IN BED, WITH HEAD OF BED ELEVATED. A/O X3 AND ABLE TO MAKE NEEDS KNOWN. PT ON O2 @ 2LPM VIA NC, SATURATING 96%. NO SOB NOTED AT THIS TIME. NO IV ACCESS. ALL SAFETY PRECAUTIONS IN PLACE. BED IN LOWEST LOCKED POSITION, HOB ELEVATED, SIDE RAILS UP X2, CALL LIGHT AND TABLE WITHIN REACH. NPO SINCE MIDNIGHT FOR CT NEEDLE BIOPSY TODAY. ALL NEEDS ATTENDED. WILL ENDORSE FOR MIHAI.
--- NOTE | 2022-05-09 07:20 | NUR ---
MS RN OPENING NOTE RECEIVED PATIENT AWAKE IN BED,WITH HEAD OF BED ELEVATED. A/O X3 AND ABLE TO MAKE NEEDS KNOWN. PT ON O2 @ 2LPM VIA NC, SATURATING 94%. NO SOB NOTED. NO DISTRESS NOTED. NO IV ACCESS NOTED. PATIENT REMOVED IV PREVIOUS SHIFT AND REFUSED TO REINSERT THE IV. NPO FOR POSSIBLE CT NEEDLE BIOPSY.ALL SAFETY PRECAUTIONS IN PLACE. BED IN LOWEST LOCKED POSITION, HOB ELEVATED, SIDE RAILS UP X2, AND CALL LIGHT AND TRAY TABLE WITHIN REACH. WILL CONTINUE TO MONITOR.
[2022-05-09] MEDS: IPRATROPIUM NEB FS 0.5 MG/2.5 ML AMPUL.NEB NEB SCH ×3 (07:54→15:58)
[2022-05-09] MEDS: ALBUTEROL FS 2.5 MG/0.5 ML VIAL.NEB NEB SCH ×3 (07:54→15:57)
[2022-05-09] MEDS: ENSURE ENLIVE 237 ML LIQUID (VANILLA) PO SCH ×2 (08:00→11:53)
[2022-05-09] MEDS: BENZONATATE 100 MG CAPSULE PO SCH ×2 (08:56→16:29)
[2022-05-09] MEDS: BENZTROPINE MESYLATE (1 MG) 1 MG TABLET PO SCH ×2 (08:56→16:29)
[2022-05-09] MEDS: HALOPERIDOL 5 MG TABLET PO SCH ×2 (08:56→16:29)
[2022-05-09] MEDS: MEGESTROL ACETATE 40 MG TABLET PO SCH (09:00)
[2022-05-09] MEDS ORDERED: BENZ1TAB7 PO (10:26)
[2022-05-09] MEDS ORDERED: BENZ-38 PO (10:26)
[2022-05-09] MEDS ORDERED: HALO5TAB8 PO (10:26)
--- NOTE | 2022-05-09 19:44 | NUR ---
RN NOTES CALLED [facility] WITH PHONE NUMBER [phone] AT 1500 AND GAVE REPORT TO KEVEN ORTEGA.
--- NOTE | 2022-05-09 19:46 | NUR ---
RN NOTES DISCHARGE PATIENT IN STABLE CONDITION WITH STABLE VITAL SIGN. NO PAIN NOTED. NO SOB NOTED. NO DISTRESS NOTED. PATIENT DID NOT HAVE ANY IV ACCESS. ID BAND REMOVED. ALL THE BELONGINGS WITH THE PATIENT. PATIENT LEFT HOSPITAL IN STABLE CONDITION WITH STABLE VITAL SIGNS AT [address] RDZ AND CHARGE NURSE JENNIE AWARE OF THE DISCHARGE.
== END 2022-05-09 17:00 | DRG 140 ==
LOC: ER 13:07 → TRANSITION 17:40 → TELE 21:42 → MED 23:08
PROVIDERS: ADMIT Nurse Practitioner Acute Care; ATTEND Internal Medicine
DX: J44.1 Chronic obstructive pulmonary disease with (acute) exacerbation (principal); J96.01 Acute respiratory failure with hypoxia; E43 Unspecified severe protein-calorie malnutrition; J96.02 Acute respiratory failure with hypercapnia; C79.51 Secondary malignant neoplasm of bone; E87.3 Alkalosis; I48.91 Unspecified atrial fibrillation; C34.90 Malignant neoplasm of unspecified part of unspecified bronchus or lung; E87.1 Hypo-osmolality and hyponatremia; Z20.822 Contact with and (suspected) exposure to COVID-19; I10 Essential (primary) hypertension; Z79.51 Long term (current) use of inhaled steroids; Z79.899 Other long term (current) drug therapy; F20.0 Paranoid schizophrenia; F17.200 Nicotine dependence, unspecified, uncomplicated; Z91.199 Patient's noncompliance with other medical treatment and regimen due to unspecified reason; Z53.20 Procedure and treatment not carried out because of patient's decision for unspecified reasons; F29 Unspecified psychosis not due to a substance or known physiological condition
CPT/HCPCS: 36415; 71045-TC; 71250-TC; 71260-TC; 80048-TC; 80076-TC; 82378; 83615-TC; 83880; 84484-TC; 85025-TC; 85610-TC; 87081-TC; 94799-TC; C9803; G0378; J2270; J2920; J2930; J3475; Q9967